=== PATIENT | female | born 1950 | race Two or more races ===

== ENCOUNTER 2018-07-20 10:44 | Outpatient (CLI) | payer OTHER | END 2018-07-20 10:50 | disposition home or self-care (01) | LOC: RAD 501 10:44 | DX: J20.8 Acute bronchitis due to other specified organisms (principal) ==

== ENCOUNTER 2018-10-12 11:43 | Emergency (ER) | payer OTHER ==
[~2018-10-12] VITALS: Ht 160 cm; Wt 65.8 kg
== END 2018-10-12 18:59 | disposition home or self-care (01) ==
LOC: ER 11:43
DX: S20.212A Contusion of left front wall of thorax, initial encounter (principal); S20.211A Contusion of right front wall of thorax, initial encounter; S50.01XA Contusion of right elbow, initial encounter; S00.83XA Contusion of other part of head, initial encounter; S80.01XA Contusion of right knee, initial encounter; W18.39XA Other fall on same level, initial encounter; Y93.89 Activity, other specified; Y92.098 Other place in other non-institutional residence as the place of occurrence of the external cause; Y99.8 Other external cause status

== ENCOUNTER 2018-11-22 12:26 | Outpatient (CLI) | payer OTHER | END 2018-11-22 12:37 | disposition home or self-care (01) | LOC: RAD 12:26 | DX: M54.5 Low back pain (principal); M54.16 Radiculopathy, lumbar region ==

== ENCOUNTER 2018-11-26 09:00 | Outpatient (CLI) | payer OTHER | END 2018-11-26 09:06 | disposition home or self-care (01) | LOC: RAD 501 09:00 | DX: M12.9 Arthropathy, unspecified (principal); M19.90 Unspecified osteoarthritis, unspecified site ==

== ENCOUNTER 2020-07-16 13:49 | Emergency (ER) | payer OTHER ==
[~2020-07-16] VITALS: Ht 160 cm; Wt 66.2 kg
== END 2020-07-16 16:26 | disposition home or self-care (01) ==
LOC: ER 13:49
DX: S43.015A Anterior dislocation of left humerus, initial encounter (principal); X50.0XXA Overexertion from strenuous movement or load, initial encounter; Y93.89 Activity, other specified; Y92.098 Other place in other non-institutional residence as the place of occurrence of the external cause; Y99.8 Other external cause status

== ENCOUNTER → 2020-07-27 08:48 | Outpatient (CLI) | payer OTHER | END | disposition home or self-care (01) | LOC: LAB 08:48 | PROVIDERS: ATTEND Orthopaedic Surgery | DX: E03.8 Other specified hypothyroidism (principal); E21.2 Other hyperparathyroidism; E88.89 Other specified metabolic disorders; M81.8 Other osteoporosis without current pathological fracture; E55.9 Vitamin D deficiency, unspecified; M85.88 Other specified disorders of bone density and structure, other site; E56.1 Deficiency of vitamin K; I10 Essential (primary) hypertension; E11.9 Type 2 diabetes mellitus without complications; E78.2 Mixed hyperlipidemia ==

== ENCOUNTER 2020-08-06 09:35 | Outpatient (CLI) | payer OTHER | END 2020-08-06 09:43 | disposition home or self-care (01) | LOC: NUCLEAR 09:35 | PROVIDERS: ATTEND Orthopaedic Surgery | DX: M81.0 Age-related osteoporosis without current pathological fracture (principal) ==

== ENCOUNTER 2020-09-09 10:31 | Outpatient (CLI) | payer OTHER | END 2020-09-09 10:44 | disposition home or self-care (01) | LOC: TOM 10:31 | PROVIDERS: ATTEND Orthopaedic Surgery | DX: S22.42XA Multiple fractures of ribs, left side, initial encounter for closed fracture (principal); M25.512 Pain in left shoulder ==

== ENCOUNTER 2021-01-12 15:07 | Outpatient (CLI) | payer OTHER | END 2021-01-12 15:47 | disposition home or self-care (01) | LOC: OFIC 805 15:07 | PROVIDERS: ATTEND Otolaryngology Otology & Neurotology | DX: H61.032 Chondritis of left external ear (principal); R42 Dizziness and giddiness ==

== ENCOUNTER 2021-03-01 12:10 | Outpatient (CLI) | payer OTHER | END 2021-03-01 12:18 | disposition home or self-care (01) | LOC: RAD 12:10 | PROVIDERS: ATTEND Orthopaedic Surgery | DX: M25.561 Pain in right knee (principal); M25.562 Pain in left knee ==

== ENCOUNTER 2021-11-19 07:54 | Outpatient (CLI) | payer OTHER | END 2021-11-19 08:02 | disposition home or self-care (01) | LOC: LAB 07:54 | PROVIDERS: ATTEND Orthopaedic Surgery | DX: D64.9 Anemia, unspecified (principal); E88.9 Metabolic disorder, unspecified; D68.8 Other specified coagulation defects; N39.0 Urinary tract infection, site not specified; B95.62 Methicillin resistant Staphylococcus aureus infection as the cause of diseases classified elsewhere; E11.65 Type 2 diabetes mellitus with hyperglycemia; E03.9 Hypothyroidism, unspecified; E55.9 Vitamin D deficiency, unspecified ==

== ENCOUNTER 2021-12-02 10:34 | Outpatient (CLI) | payer OTHER | END 2021-12-02 10:37 | disposition home or self-care (01) | LOC: SONOGRAMA 10:34 | PROVIDERS: ATTEND Pathology Anatomic Pathology & Clinical Pathology | DX: E04.1 Nontoxic single thyroid nodule (principal) ==

== ENCOUNTER 2023-02-28 08:02 | Outpatient (CLI) | payer OTHER ==
[~2023-02-28 08:02] MED LIST: DICLOFENAC SODI50 MG PO
== END 2023-02-28 08:07 | disposition home or self-care (01) ==
LOC: RAD 08:02
PROVIDERS: ATTEND Internal Medicine Cardiovascular Disease
DX: M12.9 Arthropathy, unspecified (principal)

== ENCOUNTER 2023-08-04 11:18 | Outpatient (CLI) | payer OTHER | END 2023-08-04 11:26 | disposition home or self-care (01) | LOC: MAMO-SONO 11:18 | PROVIDERS: ATTEND Obstetrics & Gynecology Gynecology | DX: N60.11 Diffuse cystic mastopathy of right breast (principal); N60.12 Diffuse cystic mastopathy of left breast; Z12.31 Encounter for screening mammogram for malignant neoplasm of breast ==

== ENCOUNTER 2023-10-18 13:57 | Outpatient (CLI) | payer OTHER ==
[~2023-10-18 13:57] MED LIST changes: +NEURONTIN300 MG PO
== END 2023-10-18 14:05 | disposition home or self-care (01) ==
LOC: RAD 13:57
PROVIDERS: ATTEND Orthopaedic Surgery
DX: M25.561 Pain in right knee (principal)

== ENCOUNTER 2023-11-20 09:12 | Outpatient (CLI) | payer OTHER ==
[2023-11-20 10:32] LABS: URINE APPEARANCE Clear; URINE BACTERIA 15.1 uL (0.0-1933); URINE BILIRRUBIN Negative (NEGATIVE); URINE BLOOD Negative; URINE COLOR Yellow; URINE EPITHELIAL CELLS 1.9 uL (0.0-38.8); URINE GLUCOSE Negative (NEGATIVE); URINE LEUKOCYTE Negative; URINE NITRATE Negative; URINE PROTEIN Negative (NEGATIVE); URINE RBC 3.3 uL (0.0-20.8); URINE UROBILINOGEN 0.2 E.U./dl; URINE WBC 2.1 uL (0.0-23.2)
[2023-11-20 10:35] LABS: HEMATOCRIT 35.3 % (36.0-45.00); HEMOGLOBIN 11.8 g/dL (12.0-15.00); MEAN CELL VOLUME 99.1 fL (80.00-100.00); MEAN CORPUSCULAR HGB CONC 33.3 g/dl (32.0-36.0); PLATELET COUNT 385 K/uL (150-450); RED BLOOD COUNT 3.56 M/uL (4.00-6.00); RED CELL DISTRIBUTION WIDTH 13.6 % (11.5-14.5)
[2023-11-20 11:08] LABS: INR 0.94; PARTIAL THROMBOPLASTIN TIME 30.5 SECONDS (22.0-34.0); PROTHROMBIN TIME 9.9 SECONDS (9.0-11.5)
[2023-11-20 11:11] LABS: COL EPI 189 SECONDS (82-175)
[2023-11-20 13:09] LABS: ALBUMIN 3.4 gm/dL (3.4-5.0); BILIRUBIN TOTAL 0.35 mg/dL (0.3-1.2); CREATININE SERUM 0.69 mg/dL (0.55-1.02); GFR 82.94; GLOBULINA 3.2 G/DL (2.4-3.5); MAGNESIUM 2.3 mg/dL (1.8-2.4); POTASSIUM 4.29 mEq/L (3.5-5.1); TOTAL PROTEIN 6.6 gm/dL (6.4-8.2)
== END 2023-11-20 09:27 | disposition home or self-care (01) ==
LOC: LAB 09:12
PROVIDERS: ATTEND Orthopaedic Surgery
DX: E55.9 Vitamin D deficiency, unspecified (principal); M85.9 Disorder of bone density and structure, unspecified; E56.1 Deficiency of vitamin K; D64.9 Anemia, unspecified; E88.89 Other specified metabolic disorders; D68.8 Other specified coagulation defects; N39.0 Urinary tract infection, site not specified; Z22.322 Carrier or suspected carrier of Methicillin resistant Staphylococcus aureus; I10 Essential (primary) hypertension; Z76.89 Persons encountering health services in other specified circumstances

== ENCOUNTER 2024-04-25 13:48 | Outpatient (CLI) | payer OTHER ==
[2024-04-25 14:38] LABS: SYNOVIAL FLUID APPEARANCE CLOUDY; SYNOVIAL FLUID COLOR XANTHOCROMIC
[2024-04-25 15:51] LABS: MONONUCLEAR 80 %; POLYMORPHONUCLEAR 20 %
== END 2024-04-25 14:01 | disposition home or self-care (01) ==
LOC: LAB 13:48
PROVIDERS: ATTEND Orthopaedic Surgery
DX: M25.461 Effusion, right knee (principal)

== ENCOUNTER → 2024-07-03 06:12 | Outpatient (CLI) | payer OTHER ==
[2024-07-03 06:48] LABS: HEMATOCRIT 34.2 % (36.0-45.00); HEMOGLOBIN 11.9 g/dL (12.0-15.00); MEAN CELL VOLUME 95.8 fL (80.00-100.00); MEAN CORPUSCULAR HEMOGLOBIN 33.2 pg (27.00-32.0); MEAN CORPUSCULAR HGB CONC 34.6 g/dl (32.0-36.0); PLATELET COUNT 371 K/uL (150-450); RED BLOOD COUNT 3.57 M/uL (4.00-6.00); RED CELL DISTRIBUTION WIDTH 13.6 % (11.5-14.5)
[2024-07-03 07:16] LABS: URINE APPEARANCE Clear; URINE BILIRRUBIN Negative (NEGATIVE); URINE BLOOD Negative; URINE COLOR Yellow; URINE GLUCOSE Negative (NEGATIVE); URINE KETONE Negative (NEGATIVE); URINE LEUKOCYTE Negative; URINE NITRATE Negative; URINE PROTEIN Negative (NEGATIVE); URINE UROBILINOGEN 0.2 E.U./dl
[2024-07-03 07:20] LABS: URINE BACTERIA 31.4 uL (0.0-1933); URINE EPITHELIAL CELLS 3.5 uL (0.0-38.8); URINE RBC 5.6 uL (0.0-20.8); URINE WBC 5.4 uL (0.0-23.2)
[2024-07-03 07:21] LABS: INR 0.96; PARTIAL THROMBOPLASTIN TIME 29.5 SECONDS (22.0-34.0); PROTHROMBIN TIME 10.5 SECONDS (9.0-11.5)
[2024-07-03 07:36] LABS: ALBUMIN 3.5 gm/dL (3.4-5.0); BILIRUBIN TOTAL 0.35 mg/dL (0.3-1.2); CREATININE SERUM 0.73 mg/dL (0.55-1.02); GFR 77.51; GLOBULINA 3.2 G/DL (2.4-3.5); POTASSIUM 4.55 mEq/L (3.5-5.1); TOTAL PROTEIN 6.7 gm/dL (6.4-8.2)
[2024-07-03 08:44] LABS: COL ADP 202 SECONDS (56-102); COL EPI >300 SECONDS (82-175)
== END | disposition home or self-care (01) ==
LOC: RAD 06:12
PROVIDERS: ATTEND Orthopaedic Surgery
DX: D64.9 Anemia, unspecified (principal); E88.89 Other specified metabolic disorders; D68.8 Other specified coagulation defects; N39.0 Urinary tract infection, site not specified; Z22.322 Carrier or suspected carrier of Methicillin resistant Staphylococcus aureus; Z76.89 Persons encountering health services in other specified circumstances; I10 Essential (primary) hypertension

== ENCOUNTER 2024-07-13 08:41 | Outpatient (CLI) | payer OTHER ==
[~2024-07-13 08:41] MED LIST changes: +CRESTOR40 MG PO; +DIOVAN40 MG PO; +KAPSPARGO SPRIN25 MG PO
[2024-07-13 10:32] LABS: COL EPI 206 SECONDS (82-175)
== END 2024-07-13 08:42 | disposition home or self-care (01) ==
LOC: LAB 08:41
PROVIDERS: ATTEND Orthopaedic Surgery
DX: D68.8 Other specified coagulation defects (principal)

== ENCOUNTER 2024-07-15 05:20 | Day surgery (SDC) | payer OTHER ==
[2024-07-15 07:56] LABS: COL ADP 116 SECONDS (56-102); COL EPI 183 SECONDS (82-175)
[2024-07-15] MEDS ORDERED: CEFAZOLIN SODIUM 1,000 MG VIAL IV ONE (10:45)
[2024-07-15] MEDS ORDERED: BUPIVACAINE HCL/PF 0.25% 30ML VIAL InF ONE (10:45)
[2024-07-15] MEDS ORDERED: SUGAMMADEX SODIUM 200 MG/2 ML VIAL IV ONE (11:30)
== END 2024-07-15 13:30 | disposition home or self-care (01) ==
LOC: CIR.AMB 05:20
PROVIDERS: ATTEND Orthopaedic Surgery
DX: G57.82 Other specified mononeuropathies of left lower limb (principal); Z88.5 Allergy status to narcotic agent; I10 Essential (primary) hypertension; E78.5 Hyperlipidemia, unspecified

== ENCOUNTER 2024-12-09 08:46 | Outpatient (CLI) | payer OTHER | END 2024-12-09 08:55 | disposition home or self-care (01) | LOC: MAMO-SONO 08:46 | PROVIDERS: ATTEND Obstetrics & Gynecology Gynecology | DX: N60.11 Diffuse cystic mastopathy of right breast (principal); N60.12 Diffuse cystic mastopathy of left breast; Z12.31 Encounter for screening mammogram for malignant neoplasm of breast ==

== ENCOUNTER 2025-01-01 13:27 | Outpatient (CLI) | payer OTHER | END 2025-01-01 13:29 | disposition home or self-care (01) | LOC: NUCLEAR 13:27 | PROVIDERS: ATTEND Physical Medicine & Rehabilitation | DX: M81.0 Age-related osteoporosis without current pathological fracture (principal) ==

== ENCOUNTER 2025-02-28 08:30 | Outpatient (CLI) | payer OTHER | END 2025-02-28 08:33 | disposition home or self-care (01) | LOC: SONOGRAMA 08:30 | PROVIDERS: ATTEND Orthopaedic Surgery | DX: M79.604 Pain in right leg (principal) ==

== ENCOUNTER 2025-07-09 15:17 | Outpatient (CLI) | payer OTHER | END 2025-07-09 15:23 | disposition home or self-care (01) | LOC: SONOGRAMA 15:17 | PROVIDERS: ATTEND Internal Medicine Cardiovascular Disease | DX: E03.9 Hypothyroidism, unspecified (principal); E04.9 Nontoxic goiter, unspecified ==

== ENCOUNTER 2025-08-14 09:12 | Outpatient (CLI) | payer OTHER | END 2025-08-14 09:15 | disposition home or self-care (01) | LOC: SONOGRAMA 09:12 | PROVIDERS: ATTEND Pathology Anatomic Pathology & Clinical Pathology | DX: D34 Benign neoplasm of thyroid gland (principal); E07.89 Other specified disorders of thyroid; E04.1 Nontoxic single thyroid nodule ==

== ENCOUNTER 2025-08-26 09:26 | Outpatient (CLI) | payer OTHER | END 2025-08-26 09:32 | disposition home or self-care (01) | LOC: SONOGRAMA 09:26 | PROVIDERS: ATTEND Obstetrics & Gynecology Gynecology | DX: R10.20 Pelvic and perineal pain unspecified side (principal) ==

== ENCOUNTER 2025-08-28 07:08 | Outpatient (CLI) | payer OTHER | END 2025-08-28 07:13 | disposition home or self-care (01) | LOC: MRI 07:08 | PROVIDERS: ATTEND Orthopaedic Surgery | DX: D16.22 Benign neoplasm of long bones of left lower limb (principal) | CPT/HCPCS: 73700; 73722; Q9965; 73719 ==